=== PATIENT | female | born 1960 | race Caucasian/White ===

== ENCOUNTER 2021-08-06 07:41 | Outpatient (CLI) | payer BC | END 2021-08-06 07:42 | disposition home or self-care (01) | LOC: CT 07:41 | PROVIDERS: ATTEND Internal Medicine Hematology & Oncology | DX: C50.811 Malignant neoplasm of overlapping sites of right female breast (principal); N63.10 Unspecified lump in the right breast, unspecified quadrant; E07.89 Other specified disorders of thyroid; N20.0 Calculus of kidney; K76.9 Liver disease, unspecified | CPT/HCPCS: 71260; 74177; 78306; A9503 ==

== ENCOUNTER 2023-11-14 13:22 | Outpatient (CLI) | payer BC | END 2023-11-14 13:23 | disposition home or self-care (01) | LOC: BICMAMMO 13:22 | PROVIDERS: ATTEND Internal Medicine Hematology & Oncology | DX: Z08 Encounter for follow-up examination after completed treatment for malignant neoplasm (principal); Z85.3 Personal history of malignant neoplasm of breast; D51.8 Other vitamin B12 deficiency anemias; Z14.8 Genetic carrier of other disease | CPT/HCPCS: 77066; G0279 ==